=== PATIENT | female | born 1975 | race Caucasian/White ===

== ENCOUNTER → 2017-01-20 14:51 | Outpatient (CLI) | payer OTHER | END | disposition home or self-care (01) | LOC: D.LABREF 14:51 | PROVIDERS: Family Medicine | DX: S30.861A Insect bite (nonvenomous) of abdominal wall, initial encounter (principal) ==

== ENCOUNTER → 2017-03-30 19:11 | Outpatient (CLI) | payer OTHER ==
[2017-03-30 22:09] LABS: ERYTHROCYTE SEDIMENTATION RATE 22 mm/hr (0-20)
== END | disposition home or self-care (01) ==
LOC: D.LABREF 19:11
PROVIDERS: Student in an Organized Health Care Education/Training Program
DX: A77.0 Spotted fever due to Rickettsia rickettsii (principal); M19.90 Unspecified osteoarthritis, unspecified site

== ENCOUNTER 2019-08-25 23:07 | Emergency (ER) | payer OTHER ==
[~2019-08-25] VITALS: Ht 162.6 cm; Wt 118.2 kg
[2019-08-25 23:13] VITALS: Ht 162.6 cm; Wt 118.2 kg
[2019-08-25] MEDS ORDERED: VALIUM10 MG PO (23:29)
[2019-08-25] MEDS ORDERED: HYDROCODON-ACE1 EAC2 PO (23:29)
[2019-08-26 00:05] VITALS: BP 116/71
== END 2019-08-26 00:05 | disposition home or self-care (01) ==
LOC: D.ER 23:07
DX: M79.18 Myalgia, other site (principal)